=== PATIENT | male | born 1960 | race Caucasian/White ===

== ENCOUNTER 2019-07-05 21:47 | Emergency (ER) | payer MEDICAID ==
[~2019-07-05] VITALS: Ht 170.2 cm; Wt 81.6 kg
[~2019-07-05 21:47] MED LIST: ENAL20TA46 PO; METF1TER8 PO; SIMV20TA1 PO
[2019-07-05 21:50] VITALS: BP 167/100
--- NOTE | 2019-07-05 21:55 | NUR ---
TO LOBBY A/W BED AMBULATORY
[2019-07-05 23:19] LABS: BASOPHILS # (AUTO) 0.1 K/uL (0.00-0.22); BASOPHILS % (AUTO) 1.3 % (0.0-2.0); EOSINOPHILS # (AUTO) 0.2 K/uL (0-0.4); EOSINOPHILS % (AUTO) 1.7 % (0.0-4.0); HEMATOCRIT 44.4 % (36-52); HEMOGLOBIN 14.6 g/dL (12.0-18.0); LYMPHOCYTES # (AUTO) 3.5 K/uL (2.0-11.5); LYMPHOCYTES % (AUTO) 33.4 % (20.5-51.1); MEAN CORPUSCULAR HEMOGLOBIN 30 pg (27-31); MEAN CORPUSCULAR HGB CONC 33 g/dL (33-37); MEAN CORPUSCULAR VOLUME 92.6 fL (80-94); MONOCYTES # (AUTO) 0.8 K/uL (0.8-1.0); MONOCYTES % (AUTO) 8.1 % (1.7-9.3); NEUTROPHILS # (AUTO) 5.8 K/uL (1.8-7.7); NEUTROPHILS % (AUTO) 55.5 % (42.2-75.2); PLATELET COUNT (AUTO) 202 K/uL (140-450); RED CELL DISTRIBUTION WIDTH 13.5 % (11.6-13.7); WHITE BLOOD COUNT (AUTO) 10.4 K/uL (4.8-10.8)
[2019-07-05 23:35] LABS: ALBUMIN 3.7 g/dL (3.4-5.0); ANION GAP 11.7 (8-16); CARBON DIOXIDE 30.1 mmol/L (21-32); CREATININE 1.2 mg/dL (0.6-1.3); POTASSIUM 3.8 mmol/L (3.5-5.1); TOTAL BILIRUBIN 0.4 mg/dL (0.0-1.0)
--- NOTE | 2019-07-06 00:44 | NUR ---
ambulated to bed 6.
--- NOTE | 2019-07-06 00:50 | NUR ---
59 YEAR OLD MALE COMPLAINS OF CHEST PAIN SINCE AFTERNOON. PATIENT STATES PAIN IS 7/10 PRESSURE AND NONRADIATING. BP 134/87, HR 95. PATIENT COMPLAINS OF SOB. LUNGS CTABL, RR 16, SPO2 98%. AOX4, BREATHING EVEN AND UNLABORED, SKIN WARM AND DRY. BED IN LOWEST POSITION, LOCKED, BED RAIL UPX1. PATIENT PLACED ON MONITOR, ERMD AWARE OF STATUS. AT BEDSIDE. PATIENT PLACED ON MONITOR. REPORT GIVEN TO PHILIPPE SOSA. PMH - 2 PREVIOUS HEART ATTACKS, DM2, HTN ALLERGIES - PCN
--- NOTE | 2019-07-06 01:00 | NUR ---
PT AWAKE, SITTING UP IN BED WITH VSS. NO COMPLAINTS AT THIS TIME.
[2019-07-06] MEDS ORDERED: ALBUTEROL SULFATE/IPRATROPIU 3 ML SOL IH ONE (01:30)
[2019-07-06 03:56] VITALS: BP 119/92
--- NOTE | 2019-07-06 03:56 | NUR ---
Patient discharged with v/s stable. Written and verbal after care instructions given and explained. Patient alert, oriented and verbalized understanding of instructions. Ambulatory with steady gait. All questions addressed prior to discharge. ID band removed. Patient advised to follow up with PMD. Rx of Aspirin, Glipizide, Metformin and Albuterol given. Patient educated on indication of medication including possible reaction and side effects. Opportunity to ask questions provided and answered.
== END 2019-07-06 03:56 | disposition home or self-care (01) ==
LOC: MED 21:47
DX: R07.9 Chest pain, unspecified (principal); R05 Cough; E11.9 Type 2 diabetes mellitus without complications; I10 Essential (primary) hypertension; Z79.899 Other long term (current) drug therapy; Z88.0 Allergy status to penicillin; Z79.84 Long term (current) use of oral hypoglycemic drugs
CPT/HCPCS: 36415; 71045; 80053; 83880; 84484; 85025; 93005; 94640; 99285; J7620

== ENCOUNTER 2020-10-08 16:16 | Emergency (ER) | payer OTHER, MEDICAID ==
[~2020-10-08] VITALS: Ht 165.1 cm; Wt 86.6 kg
[2020-10-08 16:22] VITALS: BP 130/82
[2020-10-08] MEDS ORDERED: FUROSEMIDE 40 MG/4 ML VIAL IVP ONE (16:30)
[2020-10-08 16:53] LABS: BASOPHILS # (AUTO) 0.1 K/uL (0.00-0.22); BASOPHILS % (AUTO) 0.9 % (0.0-2.0); EOSINOPHILS # (AUTO) 0.1 K/uL (0-0.4); HEMATOCRIT 41.3 % (36-52); HEMOGLOBIN 13.5 g/dL (12.0-18.0); LYMPHOCYTES # (AUTO) 1.9 K/uL (2.0-11.5); LYMPHOCYTES % (AUTO) 24.2 % (20.5-51.1); MEAN CORPUSCULAR HEMOGLOBIN 29 pg (27-31); MEAN CORPUSCULAR HGB CONC 33 g/dL (33-37); MEAN CORPUSCULAR VOLUME 89.9 fL (80-94); MONOCYTES # (AUTO) 0.5 K/uL (0.8-1.0); MONOCYTES % (AUTO) 6.2 % (1.7-9.3); NEUTROPHILS # (AUTO) 5.4 K/uL (1.8-7.7); NEUTROPHILS % (AUTO) 67.7 % (42.2-75.2); PLATELET COUNT (AUTO) 200 K/uL (140-450); RED BLOOD CELL COUNT(AUTO) 4.59 MIL/uL (4.20-6.10)
[2020-10-08 17:16] LABS: ALBUMIN 3.2 g/dL (3.4-5.0); ANION GAP 9.5 (8-16); CARBON DIOXIDE 30.4 mmol/L (21-32); CREATININE 0.9 mg/dL (0.6-1.3); POTASSIUM 3.9 mmol/L (3.5-5.1); TOTAL BILIRUBIN 0.9 mg/dL (0.0-1.0)
[2020-10-08 17:19] LABS: PROTHROMBIN TIME 11.2 secs (10.8-13.4)
[2020-10-08] MEDS ORDERED: METF1TAB5 PO (18:08)
[2020-10-08] MEDS ORDERED: FURO-572 PO (18:08)
[2020-10-08] MEDS ORDERED: SIMV20TA1 PO (18:08)
[2020-10-08 18:30] VITALS: BP 130/82
== END 2020-10-08 18:30 | disposition home or self-care (01) ==
LOC: MED 16:16
DX: I11.0 Hypertensive heart disease with heart failure (principal); I50.9 Heart failure, unspecified; I25.2 Old myocardial infarction; E11.9 Type 2 diabetes mellitus without complications; F17.200 Nicotine dependence, unspecified, uncomplicated; F15.90 Other stimulant use, unspecified, uncomplicated; Z98.890 Other specified postprocedural states
CPT/HCPCS: 36415; 71045; 80053; 83880; 84484; 85025; 85610; 85730; 93005; 96374; 99285; J1940

== ENCOUNTER 2020-10-27 01:13 | Observation (INO) | payer OTHER, MEDICAID ==
[~2020-10-27] VITALS: Ht 167.6 cm; Wt 89.8 kg
[~2020-10-27 01:13] MED LIST changes: +FURO-572 PO; +METF1TAB5 PO
--- NOTE | 2020-10-27 01:18 | NUR ---
PT'S NAME CALLED, PER ER ADMITTING PT IS IN RESTROOM.
--- NOTE | 2020-10-27 01:28 | NUR ---
Pt's name called x 3 in Lobby - no response at this time.
--- NOTE | 2020-10-27 01:28 | NUR ---
60 Y/O MALE CAME TO THE ED C/O LOWER EXTREMITY PAIN/ SWELLING, AND CHF EXACERBATION. PT STATES THAT HE HAS DIURETICS AT HOME AND THAT IT IS NOT "WORKING". PT HAS A 10/10 LOWER EXTREMITY PAIN. PT HAS A JVD PRESENT. PT'S BILATERAL LOWER EXTREMITY ARE BOTH RED, SWOLLEN BUT NOT WARM TO TOUCH. DENIES SOB, OR CHEST PAIN. PRESENT CRACKLES ON BILATERAL LUNGS. PMH: 2 HEART ATTACKS, CHF, HTN ALLERGIES: PENICILLIN
--- NOTE | 2020-10-27 01:37 | NUR ---
Knocked on restroom door in Lobby - pt responded states " he is okay and will be out soon."
[2020-10-27 01:55] VITALS: BP 136/99
--- NOTE | 2020-10-27 02:00 | NUR ---
PATIENT AMBULATED TO BED 11 WITH STEADY GAIT.
--- NOTE | 2020-10-27 02:05 | NUR ---
KATHERINE CHAMBERSAW AT BEDSIDE FOR MEDICAL EVALUATION.
[2020-10-27] MEDS ORDERED: FUROSEMIDE 40 MG/4 ML VIAL IVP ONE (02:10)
--- NOTE | 2020-10-27 02:18 | NUR ---
EKG PERFORMED AT BEDSIDE. EKG READS SINUS RHYTHM @ 99
[2020-10-27 02:47] LABS: EOSINOPHILS # (AUTO) 0.1 K/uL (0-0.4); HEMOGLOBIN 12.8 g/dL (12.0-18.0); MEAN CORPUSCULAR HEMOGLOBIN 29 pg (27-31); RED BLOOD CELL COUNT(AUTO) 4.37 MIL/uL (4.20-6.10); RED CELL DISTRIBUTION WIDTH 16.1 % (11.6-13.7)
[2020-10-27 02:53] LABS: BASOPHILS # (AUTO) 0.1 K/uL (0.00-0.22); BASOPHILS % (AUTO) 1.4 % (0.0-2.0); EOSINOPHILS % (AUTO) 0.9 % (0.0-4.0); LYMPHOCYTES # (AUTO) 1.8 K/uL (2.0-11.5); LYMPHOCYTES % (AUTO) 22.1 % (20.5-51.1); MEAN CORPUSCULAR HGB CONC 33 g/dL (33-37); MEAN CORPUSCULAR VOLUME 89.3 fL (80-94); MONOCYTES # (AUTO) 0.6 K/uL (0.8-1.0); MONOCYTES % (AUTO) 7.8 % (1.7-9.3); NEUTROPHILS # (AUTO) 5.6 K/uL (1.8-7.7); NEUTROPHILS % (AUTO) 67.8 % (42.2-75.2); PLATELET COUNT (AUTO) 169 K/uL (140-450); WHITE BLOOD COUNT (AUTO) 8.3 K/uL (4.8-10.8)
--- NOTE | 2020-10-27 03:00 | NUR ---
PATIENT PLACED ON LUBRICATING SPECIALIST. IV SITE REMAINS PATIENT. LASIX IVP GIVEN ORDERED.
[2020-10-27 03:07] LABS: ANION GAP 9.9 (8-16); CARBON DIOXIDE 29.7 mmol/L (21-32); POTASSIUM 3.6 mmol/L (3.5-5.1); TOTAL BILIRUBIN 0.7 mg/dL (0.0-1.0)
--- NOTE | 2020-10-27 03:56 | NUR ---
PT AMBULATED TO THE RESTROOM
[2020-10-27 04:00] VITALS: BP 120/85
[2020-10-27 04:29] LABS: APPEARANCE,URINE CLEAR (CLEAR); BILIRUBIN,URINE 1+ (NEGATIVE); BLOOD, URINE 3+ (NEGATIVE); COLOR,URINE YELLOW (YELLOW); LEUKOCYTE ESTERASE ,URINE NEGATIVE (NEGATIVE); NITRITE, URINE POSITIVE (NEGATIVE); UGLUCOSE 1+ (NEGATIVE)
--- NOTE | 2020-10-27 04:30 | NUR ---
COLLECTED URINE AND SENT TO LAB, HANDED TO CPT YESENIA
[2020-10-27 04:45] LABS: RBC,URINE >100 /HPF (0-5)
[2020-10-27 04:49] LABS: YEAST,URINE Moderate /HPF (None Seen)
--- NOTE | 2020-10-27 06:57 | NUR ---
PATIENT REFUSED HUSAIN CATHETER INSERTION. ERMD MADE AWARE
--- NOTE | 2020-10-27 06:59 | NUR ---
PATIENT REFUSED HUSAIN CATHETER INSERTION. ERMD MADE AWARE
--- NOTE | 2020-10-27 07:14 | NUR ---
GIVEN REPORT TO LINDA SOSA, FOR CONTINUITY OF CARE
--- NOTE | 2020-10-27 07:15 | NUR ---
Report received from SHEILA Valencia; care assumed.
--- NOTE | 2020-10-27 07:17 | NUR ---
PT IS REQUESTING TO LEAVE AGAINST MEDICAL ADVICE. DR. MA NOTIFIED.
--- NOTE | 2020-10-27 07:19 | NUR ---
Per Dr. Miller, will come and talk to patient about leaving AMA.
[2020-10-27] MEDS ORDERED: POTASSIUM CHLORIDE 40 MEQ, LIDOCAINE MPF 1% 25 MG in NACL 0.9% 250 ML IV PRN (07:20)
[2020-10-27] MEDS ORDERED: DEXTROSE 50% 50 ML SYR IVP PRN (07:20)
[2020-10-27] MEDS ORDERED: SODIUM PHOS / POTASSIUM PHOS 1 PKT PDR PO PRN (07:20)
[2020-10-27] MEDS ORDERED: MAG SULF 2000 MG/WATER PREMIX 50 ML IV PRN (07:20)
[2020-10-27] MEDS ORDERED: ACETAMINOPHEN 325 MG TAB PO PRN (07:20)
[2020-10-27] MEDS ORDERED: HYDROcodone/APAP 5/325 MG 1 TAB TAB PO PRN (07:20)
[2020-10-27] MEDS ORDERED: ALBUTEROL SULFATE/IPRATROPIU 3 ML SOL IH PRN (07:20)
[2020-10-27] MEDS ORDERED: ONDANSETRON 4 MG/2 ML VIAL IM/IVP PRN (07:20)
[2020-10-27] MEDS ORDERED: INSULIN LISPRO SLIDING SCALE 100 UNITS/ML VIAL SUBQ PRN (07:20)
[2020-10-27] MEDS ORDERED: MORPHINE SULFATE 2 MG/ML SYR IVP PRN (07:20)
[2020-10-27] MEDS ORDERED: DOCUSATE SODIUM 100 MG GELCAP PO PRN (07:20)
--- NOTE | 2020-10-27 07:20 | NUR ---
PATIENT HAS BEEN SCREENED AND CATEGORIZED MODERATE NUTRITION RISK. PATIENT WILL BE SEEN WITHIN 3-5 DAYS OF ADMISSION. 10/29/20 10/31/[address]
--- NOTE | 2020-10-27 07:24 | NUR ---
ICU NOTIFIED THAT PATIENT IS LEAVING AMA. SPOKE WITH
--- NOTE | 2020-10-27 07:27 | NUR ---
Patient walked out of the hospital and was asked to return so that his IV could be removed and so that he could talk to Dr. Miller. IV removed, catheter intact. Patient refused to stay to talk to Dr. Miller about going Against Medical Advice (AMA) stating "If I , I ". Patient refused to sign AMA form. Patient walked out in his clothes and with his belongings.
[2020-10-27] MEDS ORDERED: BLOOD GLUCOSE MONITORING 1 DEV DEV FS SCH (07:30)
[2020-10-27] MEDS ORDERED: ENALAPRIL 10 MG TAB PO SCH (09:00)
[2020-10-27] MEDS ORDERED: PANTOPRAZOLE 40 MG INJ VIAL IVP SCH (09:00)
[2020-10-27] MEDS ORDERED: ATORVASTATIN 20 MG TAB PO SCH (09:00)
[2020-10-27] MEDS ORDERED: FUROSEMIDE 40 MG/4 ML VIAL IVP SCH (09:00)
== END 2020-10-27 07:27 | disposition left against medical advice (07) ==
LOC: MED 01:13 → MIC 05:16 → UNDOADMOB 05:16
PROVIDERS: ADMIT Hospitalist; ATTEND Hospitalist
DX: I11.0 Hypertensive heart disease with heart failure (principal); I50.9 Heart failure, unspecified; Z20.822 Contact with and (suspected) exposure to COVID-19; E11.9 Type 2 diabetes mellitus without complications; E78.5 Hyperlipidemia, unspecified; I20.9 Angina pectoris, unspecified; N32.0 Bladder-neck obstruction; N39.0 Urinary tract infection, site not specified; Z79.899 Other long term (current) drug therapy; Z88.0 Allergy status to penicillin
CPT/HCPCS: 36415; 71045; 74176; 80053; 81001; 83880; 85025; 87086; 87426; 93005; 96374; 99291; G0378; J0696; J1940; J7060

== ENCOUNTER 2020-12-12 01:31 | Emergency (ER) | payer OTHER, MEDICAID ==
[~2020-12-12] VITALS: Ht 167.6 cm; Wt 83.5 kg
[2020-12-12 01:44] VITALS: BP 156/86
--- NOTE | 2020-12-12 01:52 | NUR ---
PATIENT SENT TO LOBBY
--- NOTE | 2020-12-12 02:08 | NUR ---
patient called to come in ER for a room. also, called via phone by admission--no answer.
--- NOTE | 2020-12-12 02:23 | NUR ---
patient called to come in ER for a room. also, called via phone--no answer.
--- NOTE | 2020-12-12 03:05 | NUR ---
patient called to come in ER for a room. also, called via phone--no answer.
--- NOTE | 2020-12-12 03:06 | NUR ---
PATIENT LEFT WITHOUT BEING SEEN BY DR. George. NO FURTHER CARE PROVIDED FOR PATIENT.
== END 2020-12-12 02:08 | disposition left against medical advice (07) ==
LOC: MED 01:31
DX: M79.10 Myalgia, unspecified site (principal); Z53.21 Procedure and treatment not carried out due to patient leaving prior to being seen by health care provider

== ENCOUNTER 2021-01-09 01:50 | Emergency (ER) | payer OTHER, MEDICAID ==
[~2021-01-09] VITALS: Ht 167.6 cm; Wt 89.8 kg
[2021-01-09 02:05] VITALS: BP 135/102
--- NOTE | 2021-01-09 02:16 | NUR ---
PT AMBULATED TO BED #11
--- NOTE | 2021-01-09 02:22 | NUR ---
EDEMA TO BILATERAL LEGS X2 WEEKS PITTING +2. ABDOMEN SLIGHTLY SWOLLEN. MILD SOB WHILE AMBULATING AND SOME DIFFICULTY AMBULATING DUE TO EXCESS FLUIDS. DENIES N/V AAOX4. MEDHX- [place] x2 (3 YRS AGO), DM, HTN, CHF ALLX- PCN
[2021-01-09 02:37] LABS: BASOPHILS # (AUTO) 0.1 K/uL (0.00-0.22); BASOPHILS % (AUTO) 0.9 % (0.0-2.0); EOSINOPHILS % (AUTO) 0.5 % (0.0-4.0); HEMATOCRIT 41.8 % (36-52); HEMOGLOBIN 13.5 g/dL (12.0-18.0); LYMPHOCYTES # (AUTO) 1.5 K/uL (2.0-11.5); MEAN CORPUSCULAR HEMOGLOBIN 29 pg (27-31); MEAN CORPUSCULAR HGB CONC 32 g/dL (33-37); MEAN CORPUSCULAR VOLUME 90.4 fL (80-94); MONOCYTES # (AUTO) 0.6 K/uL (0.8-1.0); MONOCYTES % (AUTO) 8.3 % (1.7-9.3); NEUTROPHILS # (AUTO) 5.4 K/uL (1.8-7.7); NEUTROPHILS % (AUTO) 71.3 % (42.2-75.2); PLATELET COUNT (AUTO) 234 K/uL (140-450); RED BLOOD CELL COUNT(AUTO) 4.63 MIL/uL (4.20-6.10); RED CELL DISTRIBUTION WIDTH 16.6 % (11.6-13.7); WHITE BLOOD COUNT (AUTO) 7.6 K/uL (4.8-10.8)
[2021-01-09] MEDS ORDERED: FUROSEMIDE 100 MG/10 ML VIAL IVP ONE (02:40)
[2021-01-09 02:47] LABS: ANION GAP 9.4 (8-16); CARBON DIOXIDE 31.1 mmol/L (21-32); CREATININE 1.2 mg/dL (0.6-1.3); POTASSIUM 3.5 mmol/L (3.5-5.1)
--- NOTE | 2021-01-09 03:38 | NUR ---
patient ambulated to the bathroom for urine collection
--- NOTE | 2021-01-09 04:28 | NUR ---
PATIENT AMBULATED TO THE BATHROOM
--- NOTE | 2021-01-09 04:49 | NUR ---
patient teaching on CHF
--- NOTE | 2021-01-09 05:14 | NUR ---
patient ambulated to the bathroom
[2021-01-09] MEDS ORDERED: FURO-570 PO (05:37)
--- NOTE | 2021-01-09 05:45 | NUR ---
IV removed, catheter intact and site benign. Applied folded 4x4 gauze and tape to stop bleeding.
[2021-01-09 05:59] VITALS: BP 149/102
--- NOTE | 2021-01-09 05:59 | NUR ---
Patient discharged with v/s stable. Written and verbal after care instructions given and explained. Patient alert, oriented and verbalized understanding of instructions. Ambulatory with steady gait. All questions addressed prior to discharge. ID band removed. Patient advised to follow up with PMD. Rx of lasix given. Patient educated on indication of medication including possible reaction and side effects. Opportunity to ask questions provided and answered.
== END 2021-01-09 05:59 | disposition home or self-care (01) ==
LOC: MED 01:50
DX: I11.0 Hypertensive heart disease with heart failure (principal); I50.9 Heart failure, unspecified; E11.9 Type 2 diabetes mellitus without complications; Z79.899 Other long term (current) drug therapy; Z88.0 Allergy status to penicillin
CPT/HCPCS: 36415; 71045; 80048; 83880; 84484; 85025; 93005; 96374; 99285; J1940

== ENCOUNTER 2021-01-27 06:30 | Emergency (ER) | payer OTHER, MEDICAID ==
[~2021-01-27] VITALS: Ht 167.6 cm; Wt 93.7 kg
[~2021-01-27 06:30] MED LIST changes: +FURO-570 PO
[2021-01-27 06:49] VITALS: BP 153/98
--- NOTE | 2021-01-27 06:49 | NUR ---
TO BED AMBULATORY
--- NOTE | 2021-01-27 07:23 | NUR ---
DR ARRIOLA AT BEDSIDE EXAMINING PT
[2021-01-27] MEDS ORDERED: ASPIRIN 325 MG TAB PO ONE (07:30)
[2021-01-27] MEDS ORDERED: FUROSEMIDE 20 MG/2 ML VIAL IVP ONE (07:30)
--- NOTE | 2021-01-27 07:30 | NUR ---
60 Y/O MALE C/O EDEMATOUS , SWELLING ALL OVER HIS BODY, FOR 5-6 MONTHS. PT STATES 10/10 PAIN. SKIN WARM AND DRY. LUNG SOUNDS CLEAR. ABD SOFT NON TENDER. MEDHX: CHF, CVA, DM, HTN ALLERGIES: PENICILLINS
--- NOTE | 2021-01-27 07:44 | NUR ---
XRAY AT BEDSIDE
--- NOTE | 2021-01-27 07:56 | NUR ---
IV STARTED TO RIGHT AC 20G, GOOD BLOOD RETURN, LABS COLLECTED AND WALKED TO LAB.
--- NOTE | 2021-01-27 08:13 | NUR ---
PT AMBULATED TO RESTROOM STEADY GAIT
[2021-01-27 08:23] LABS: BASOPHILS % (AUTO) 0.4 % (0.0-2.0); EOSINOPHILS % (AUTO) 0.2 % (0.0-4.0); HEMATOCRIT 40.2 % (36-52); LYMPHOCYTES # (AUTO) 0.9 K/uL (2.0-11.5); LYMPHOCYTES % (AUTO) 10.1 % (20.5-51.1); MEAN CORPUSCULAR HEMOGLOBIN 29 pg (27-31); MEAN CORPUSCULAR HGB CONC 32 g/dL (33-37); MEAN CORPUSCULAR VOLUME 90.9 fL (80-94); MONOCYTES # (AUTO) 0.7 K/uL (0.8-1.0); NEUTROPHILS # (AUTO) 7.7 K/uL (1.8-7.7); NEUTROPHILS % (AUTO) 82.3 % (42.2-75.2); PLATELET COUNT (AUTO) 224 K/uL (140-450); RED BLOOD CELL COUNT(AUTO) 4.43 MIL/uL (4.20-6.10); WHITE BLOOD COUNT (AUTO) 9.3 K/uL (4.8-10.8)
[2021-01-27 08:38] LABS: ALBUMIN 3.1 g/dL (3.4-5.0); ANION GAP 9.9 (8-16); CARBON DIOXIDE 31.8 mmol/L (21-32); POTASSIUM 4.7 mmol/L (3.5-5.1); TOTAL BILIRUBIN 1.3 mg/dL (0.0-1.0)
--- NOTE | 2021-01-27 08:54 | NUR ---
GABRIELE SWAB COLLECTED AND SENT TO LAB
[2021-01-27 08:58] LABS: APPEARANCE,URINE CLEAR (CLEAR); BILIRUBIN,URINE NEGATIVE (NEGATIVE); BLOOD, URINE NEGATIVE (NEGATIVE); COLOR,URINE YELLOW (YELLOW); LEUKOCYTE ESTERASE ,URINE NEGATIVE (NEGATIVE); NITRITE, URINE NEGATIVE (NEGATIVE); UGLUCOSE NEGATIVE (NEGATIVE)
[2021-01-27 09:28] LABS: OPIATE, URINE POSITIVE ng/mL (NEG <=2000)
[2021-01-27 09:29] LABS: BARBITURATE, URINE NEGATIVE ng/ml (NEG <=200); BENZODIAZEPINE, URINE NEGATIVE ng/mL (NEG <=200); CANNABINOID, URINE NEGATIVE ng/mL (NEG <=50); COCAINE, URINE NEGATIVE ng/mL (NEG <=300); PHENCYCLIDINE SCREEN,URINE NEGATIVE ng/mL (NEG <=25)
[2021-01-27 09:40] VITALS: BP 135/94
--- NOTE | 2021-01-27 09:40 | NUR ---
Patient does not wish to proceed with medical care recommended by DR ARRIOLA. Patient given information related to possible complications, up to and including , which could occur as a result of leaving hospital at this time. Patient verbalizes understanding of risks involved leaving against medical advice. Patient has signed AMA form.
[2021-01-27 09:45] LABS: RBC,URINE 0-5 /HPF (0-5); WBC,URINE 0-5 /HPF (0-5)
== END 2021-01-27 09:40 | disposition left against medical advice (07) ==
LOC: MED 06:30
DX: I11.0 Hypertensive heart disease with heart failure (principal); Z20.822 Contact with and (suspected) exposure to COVID-19; I50.9 Heart failure, unspecified; F15.10 Other stimulant abuse, uncomplicated; L60.0 Ingrowing nail; E11.9 Type 2 diabetes mellitus without complications; Z86.73 Personal history of transient ischemic attack (TIA), and cerebral infarction without residual deficits; Z88.0 Allergy status to penicillin; Z79.899 Other long term (current) drug therapy; Z98.890 Other specified postprocedural states
CPT/HCPCS: 36415; 71045; 80053; 80305; 81001; 83690; 83880; 84484; 85025; 87426; 93005; 96374; 99285; J1940; 81002; Q0092